=== PATIENT | male | born 1975 | race American Indian/Alaskan Native ===

== ENCOUNTER 2019-09-15 23:40 | Emergency (ER) | payer SELFPAY ==
[2019-09-16 00:02] VITALS: BP 139/102
[2019-09-16] MEDS ORDERED: IBUPROFEN 800 MG TAB PO ONE (00:05)
[2019-09-16] MEDS ORDERED: IBUPROFEN 600 MG TAB PO ONE ×2 (00:09→00:10)
[2019-09-16] MEDS ORDERED: SODIUM CHLORIDE 0.9% 1000 ML 1,000 ML IV ONE (02:16)
[2019-09-16] MEDS ORDERED: ONDANSETRON 4 MG/2 ML INJ IV ONE (02:16)
[2019-09-16] MEDS ORDERED: FAMOTIDINE 20 MG/2 ML INJ IV ONE (02:16)
--- NOTE | 2019-09-16 02:42 | XRay Report ---
CHEST PA AND LATERAL VIEWS INDICATION: cough, fever. COMPARISON: None FINDINGS: Support devices: None Heart: Normal Lungs/Pleura: No acute pulmonary or pleural findings. IMPRESSION: 1. No significant abnormality. Signer Name: Brandyn Avila MD Signed: 09/16/2019 2:37 AM Workstation Name: [id number]
[2019-09-16 03:09] LABS: Hematocrit 43.3 % (35.5-45.6); Hemoglobin 14.7 gm/dl (11.8-15.2); Mean Corpuscular HGB Conc 34 % (32-34); Mean Corpuscular Volume 84 fl (84-94); Platelet Count 191 K/mm3 (140-440); Red Blood Count 5.16 M/mm3 (3.65-5.03); Red Cell Distribution Width 12.9 % (13.2-15.2)
[2019-09-16 03:27] LABS: Alanine Aminotransferase 16 units/L (7-56); Albumin 3.9 g/dL (3.9-5); BUN/Creatinine Ratio 11; Blood Urea Nitrogen 16 mg/dL (9-20); Calcium 8.8 mg/dL (8.4-10.2); Hemolysis Index 4
[2019-09-16 04:15] LABS: Anisocytosis 1+; Band Neutrophils # (Manual) 0.1 K/mm3; Basophils % (Manual) 0 % (0.0-1.8); Eosinophils % (Manual) 0 % (0.0-4.3); Platelet Estimate Consistent w Auto; Total Cells Counted 100
--- NOTE | 2019-09-16 04:50 | Emergency Department Report ---
- General Chief Complaint: Upper Respiratory Infection Stated Complaint: FLU LIKE SYMPTOMS Source: patient Mode of arrival: Ambulatory Limitations: No Limitations - History of Present Illness Initial Comments: Patient is a 44-year-old [place] male with history of hypertension who presents to the ED with complaint of acute onset persistent nasal and sinus congestion, frontal sinus pressure and headache, sore throat, diffuse body aches and pains, intermittent fever of up to 101F with chills, dry cough, intermittent nausea and vomiting and left lower quadrant abdominal pain for the last 4 days. Patie nt states that he is not been able to keep anything down because of persistent nausea and vomiting and that he has not been able to eat any food in the last 2 days. Patient denies dizziness, chest pain, shortness of breath, dysuria, urinary frequency and urgency, diarrhea, syncope or headache. MD Complaint: cough, sore throat, rhinorrhea, nasal congestion, sinus pain, oth er (fever, chills, LLQ abdominal pain; nausea and vomiting) -: Sudden, days(s) (4) Severity scale (0 -10): 7 Quality: sharp Consistency: constant Improves With: nothing Worsens With: nothing Associated Symptoms: denies other symptoms, fever, chills, myalgias, headache, rhinorrhea, nasal congestion, sore throat, cough, abdominal pain, nausea, vomiting. denies: diaphoresis, chest pain, shortness of breath, diarrhea, dysuria, rash, confusion, right sweats, weight loss, epistaxis, hoarseness, ear pain Treatments Prior to Arrival: none - Related Data Previous Rx's Medication Instructions Recorded Last Taken Type Azithromycin [Zithromax Z-ANGELIKA] 250 mg PO DAILY #6 tablet 09/16/19 Unknown Rx Benzonatate [Tessalon Perles] 100 mg PO Q8HR #30 capsule 09/16/19 Unknown Rx Dicyclomine [Bentyl] 20 mg PO Q6H PRN #24 tablet 09/16/19 Unknown Rx Famotidine [Pepcid] 20 mg PO Q12H #30 tablet 09/16/19 Unknown Rx Ibuprofen [Motrin] 600 mg PO Q8H PRN #24 tablet 09/16/19 Unknown Rx Ondansetron [Zofran Odt] 4 mg PO Q6HR PRN #20 tab.rapdis 09/16/19 Unknown Rx Allergies Allergy/AdvReac Type Severity Reaction Status Date / Time No Known Allergies Allergy Verified 09/16/19 00:14 ED Review of Systems ROS: Stated complaint: FLU LIKE SYMPTOMS Other details as noted in HPI Constitutional: chills, fever, malaise, weakness Eyes: denies: eye pain, eye discharge, vision change ENT: congestion. denies: ear pain, throat pain Respiratory: cough. denies: shortness of breath, wheezing Cardiovascular: denies: chest pain, palpitations, syncope Endocrine: no symptoms reported Gastrointestinal: abdominal pain, nausea, vomiting. denies: diarrhea Genitourinary: denies: urgency, dysuria Musculoskeletal: denies: back pain, joint swelling, arthralgia Skin: denies: rash, lesions Neurological: headache. denies: weakness, paresthesias Psychiatric: denies: anxiety, depression Hematological/Lymphatic: denies: easy bleeding, easy bruising ED Past Medical Hx - Past Medical History Previous Medical History?: Yes Hx Hypertension: Yes - Surgical History Past Surgical History?: Yes Additional Surgical History: Thumb - Social History Smoking Status: Former Smoker Substance Use Type: None - Medications Home Medications: Home Medications Medication Instructions Recorded Confirmed Last Taken Type Azithromycin [Zithromax Z-ANGELIKA] 250 mg PO DAILY #6 tablet 09/16/19 Unknown Rx Benzonatate [Tessalon Perles] 100 mg PO Q8HR #30 capsule 09/16/19 Unknown Rx Dicyclomine [Bentyl] 20 mg PO Q6H PRN #24 tablet 09/16/19 Unknown Rx Famotidine [Pepcid] 20 mg PO Q12H #30 tablet 09/16/19 Unknown Rx Ibuprofen [Motrin] 600 mg PO Q8H PRN #24 tablet 09/16/19 Unknown Rx Ondansetron [Zofran Odt] 4 mg PO Q6HR PRN #20 tab.rapdis 09/16/19 Unknown Rx ED Physical Exam - General Limitations: No Limitations General appearance: alert, in no apparent distress - Head Head exam: Present: atraumatic, normocephalic, normal inspection - Eye Eye exam: Present: normal appearance, PERRL, EOMI Pupils: Present: normal accommodation - ENT ENT exam: Present: normal orophraynx, mucous membranes moist, TM's normal bilaterally, normal external ear exam, other (grossly congested nasal passages) - Neck Neck exam: Present: normal inspection, full ROM - Respiratory Respiratory exam: Present: normal lung sounds bilaterally. Absent: respiratory distress, wheezes, rales, stridor, chest wall tenderness, accessory muscle use, prolonged expiratory - Cardiovascular Cardiovascular Exam: Present: regular rate, normal rhythm, normal heart sounds. Absent: systolic murmur, diastolic murmur, rubs, gallop - GI/Abdominal GI/Abdominal exam: Present: soft, tenderness (palpable left lower quadrant tenderness, no guarding or rebound), normal bowel sounds. Absent: guarding, rebound, hyperactive bowel sounds, organomegaly, mass - Extremities Exam Extremities exam: Present: normal inspection, full ROM, normal capillary refill - Back Exam Back exam: Present: normal inspection, full ROM. Absent: tenderness, muscle spasm, paraspinal tenderness - Neurological Exam Neurological exam: Present: alert, oriented X3, CN II-XII intact, normal gait, reflexes normal - Psychiatric Psychiatric exam: Present: normal affect, normal mood - Skin Skin exam: Present: warm, dry, intact, normal color. Absent: rash ED Course Vital Signs 09/15/19 23:56 Temperature 100.9 F H Pulse Rate 98 H Respiratory 18 Rate Blood Pressure 139/102 O2 Sat by Pulse 95 Oximetry ED Medical Decision Making - Lab Data Result diagrams: 09/16/19 02:34 09/16/19 02:34 - Radiology Data Radiology results: report reviewed, image reviewed Findings [facility] [address] [place] [address] XRay Report Signed Patient: CLIFTNO LENZ MR#: [id number] : 1975 Acct:[id number] Age/Sex: 44 / M ADM Date: 09/15/19 Loc: ED Attending Dr: Ordering Physician: YUVAL ROSARIO Date of Service: 09/16/19 Procedure(s): XR chest routine 2V Accession Number(s): [id number] cc: YUVAL ROSARIO Fluoro Time In Minutes: CHEST PA AND LATERAL VIEWS INDICATION: cough, fever. COMPARISON: None FINDINGS: Support devices: None Heart: Normal Lungs/Pleura: No acute pulmonary or pleural findings. IMPRESSION: 1. No significant abnormality. Signer Name: Brandyn Avila MD Signed: 09/16/2019 2:37 AM Workstation Name: [id number] Transcribed By: TM Dictated By: Brandyn Avila MD Electronically Authenticated By: Brandyn Avila MD Signed Date/Time: 09/16/19236 DD/ 6 TD/TT: Findings [facility] [address] [place] [address] Cat Scan Report Signed Patient: CLIFTON LENZ MR#: [id number] : 1975 Acct:[id number] Age/Sex: 44 / M ADM Date: 09/15/19 Loc: ED Attending Dr: Ordering Physician: YUVAL ROSARIO Date of Service: 09/16/19 Procedure(s): CT abdomen pelvis w con Accession Number(s): [id number] cc: YUVAL ROSARIO CT abdomen pelvis w con INDICATION: Pt complains of L.L.Q. abdominal pain.. TECHNIQUE: All CT scans at this location are performed using CT dose reduction for ALARA by means of automated exposure control. COMPARISON: None available. FINDINGS: Lung bases are clear. Gallbladder is mostly collapsed, with no stones. Liver, spleen, pancreas, kidneys and adrenals are negative. Abdominal aorta is normal in size. No deep opathy. Pelvis Much of the small bowel is fluid-filled but not abnormally distended or edematous. No free fluid. Small, uncomplicated umbilical hernia. Urinary bladder is negative. No skeletal lesions. IMPRESSION: 1. Diffusely fluid-filled small bowel, even without evidence of formation, suggests enteritis. Otherwise negative study. Signer Name: Brandyn Avila MD Signed: 09/16/2019 5:24 AM Workstation Name: [id number] Transcribed By: TM Dictated By: Brandyn Avila MD Electronically Authenticated By: Brandyn Avila MD Signed Date/Time: 09/16/19523 DD/ 0 TD/TT: - Medical Decision Making This is a 45-year-old male who presented to the ED with flulike symptoms vectors by persistent intermittent fever of up to 101F, chills, nasal and sinus congestion, dry cough, diffuse body aches and pains, left lower quadrant abdominal pain, nausea and vomiting lack of appetite and sore throat for 4 days. In the ED, patient is alert and oriented 3 and is not in distress. Lab test results were reviewed and shows mild hypokalemia of 3.3 mmol per liter and mild hyponatremia of 136 mmol per liter. Chest x-ray shows no acute cardiopulmonary abnormalities or pneumonitis. Patient was treated in the ED for fever and pain, also received antiemetic Zofran and 1 L normal saline IV bolus in the ED. Abdomen pelvis CT scan with contrast shows diffusely fluid-filled small bowel, even without evidence of formation, suggests enteritis. On reevaluation, he shouldn't pain is well-controlled with medications. Patient has not had any nausea and vomiting after being treated in the ED with antiemetics. Patient feeling better, sleeping comfortably in the ED room with no distress. Patient was discharged home on medications and was advised to maintain a clear liquid diet for 12-24 hours, and to follow-up with his primary care physician in 5-7 days for reevaluation and also to return to the ED if his symptoms get worse. - Differential Diagnosis Flu; Pneumonia; Colitis; Gastroenteritis; Strep Pharyngitis; Dehydration Critical care attestation.: If time is entered above; I have spent that time in minutes in the direct care of this critically ill patient, excluding procedure time. ED Disposition Clinical Impression: Flu-like symptoms, Acute upper respiratory infection, Viral gastroenteritis, Viral enteritis Acute bronchitis Qualifiers: Bronchitis organism: other organism Qualified Code(s): J20.8 - Acute bronchitis due to other specified organisms Disposition: DC-01 TO HOME OR SELFCARE Is pt being admited?: No Does the pt Need Aspirin: No Condition: Stable Instructions: Acute Bronchitis (ED), Viral Syndrome (ED), Gastroenteritis (ED), Acute Nausea and Vomiting (ED), Fever in Adults (ED) Additional Instructions: Maintain a clear liquid diet for 12-24 hours, take medications with food, drink plenty of fluids and follow-up with your primary care physician in 5-7 days for reevaluation. Return to the ED immediately if symptoms get worse. Prescriptions: Dicyclomine [Bentyl] 20 mg PO Q6H PRN #24 tablet PRN Reason: Pain , Severe (7-10) Ibuprofen [Motrin] 600 mg PO Q8H PRN #24 tablet PRN Reason: Pain Famotidine [Pepcid] 20 mg PO Q12H #30 tablet Benzonatate [Tessalon Perles] 100 mg PO Q8HR #30 capsule Azithromycin [Zithromax Z-ANGELIKA] 250 mg PO DAILY #6 tablet Ondansetron [Zofran Odt] 4 mg PO Q6HR PRN #20 tab.rapdis PRN Reason: Nausea Referrals: ALEX LARA MD [Staff Physician] - 7-10 days Time of Disposition: 05:00 Print Language: HONDURAN
--- NOTE | 2019-09-16 05:29 | Cat Scan Report ---
CT abdomen pelvis w con INDICATION: Pt complains of L.L.Q. abdominal pain.. TECHNIQUE: All CT scans at this location are performed using CT dose reduction for ALARA by means of automated e xposure control. COMPARISON: None available. FINDINGS: Lung bases are clear. Gallbladder is mostly collapsed, with no stones. Liver, spleen, pancreas, kidne ys and adrenals are negative. Abdominal aorta is normal in size. No adenopathy. Pelvis Much of the small bowel is fluid-filled but not abnormally distended or edematous. No free fluid. Sma ll, uncomplicated umbilical hernia. Urinary bladder is negative. No skeletal lesions. IMPRESSION: 1. Diffusely fluid-filled small bowel, even without evidence of formation, suggests enteritis. Otherwise negative study. Signer Name: Brandyn Avila MD Signed: 09/16/2019 5:24 AM Workstation Name: [id number]
== END 2019-09-16 05:50 | disposition home or self-care (01) ==
LOC: ED 23:40
DX: K21.9 Gastro-esophageal reflux disease without esophagitis (principal); A08.39 Other viral enteritis; J11.1 Influenza due to unidentified influenza virus with other respiratory manifestations; J20.8 Acute bronchitis due to other specified organisms
CPT/HCPCS: 36415; 71046; 74177; 80053; 83690; 85007; 85025; 96361; 96374; 96375; 99284; J2405; J7030; Q9967